=== PATIENT | male | born 2000 | race African-American/Black ===

== ENCOUNTER 2021-07-01 20:06 | Emergency (ER) | payer MEDICAID ==
[~2021-07-01] VITALS: Ht 180.3 cm; Wt 120.0 kg
[2021-07-02] MEDS ORDERED: BENZ-16 MT (00:27)
[2021-07-02] MEDS ORDERED: PROM6.254 MT (00:27)
[2021-07-02 01:03] VITALS: BP 155/86
== END 2021-07-02 01:05 | disposition home or self-care (01) ==
LOC: ER 20:06
DX: J06.9 Acute upper respiratory infection, unspecified (principal); R09.81 Nasal congestion; R05.9 Cough, unspecified; Z20.822 Contact with and (suspected) exposure to COVID-19
CPT/HCPCS: 71045; 87426; 99284